=== PATIENT | female | born 1980 | race Caucasian/White ===

== ENCOUNTER 2018-08-30 06:01 | Observation (INO) | payer BC ==
--- NOTE | 2018-08-29 20:58 | PDGENHP ---
History and Physical History and Physical: Assessment and Plan: 1. Rectocele Hernando has stage III pelvic organ prolapse predominantly involving her posterior compartment with lesser her anterior and apical. Additionally, she has very heavy menses and a known dermoid cyst. We reviewed all conservative and surgical options. At the end of our discussion she is interested in surgical treatment. This will be a robotic assisted total laparoscopic hysterectomy, bilateral salpingectomy, ovarian cystectomy or oophorectomy, uterosacral ligament colpopexy, rectocele repair, and cystoscopy. 2. Cystocele, midline 3. Menorrhagia with regular cycle Subjective: Patient ID: Hernando Cm is a 38 y.o. female who presents to [facility] for prolapse. HANNAH Dawkins is a 37-year-old para 2 woman using vasectomy for contraception. She was kindly referred by Kristy Silver for prolapse. She has felt a bulge and must splint her posterior vaginal wall when constipated. This is been present for several years and is slowly worsening. She thinks she may have some incomplete emptying of her bladder. She also must wait to fully empty. She does not leak with any stress. She saw Kristy who diagnosed her with prolapse. Additionally her menses are very heavy. She will bleed a total of 4-6 days. Of these, 3-4 are very heavy when she will have to use 2 tampons at a time and change them every 2 hours. She also has significant cramping during her menses. Finally, she states she has been followed for a 1 cm ovarian dermoid. She is not sure which side it is located on. 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 Her history is significant for an umbilical hernia repair as well as a history of C. difficile colitis and obesity. PastMedicalHistory Past Medical History: Diagnosis Date Allergy to pollen Depression Gastrointestinal disorder GERD (gastroesophageal reflux disease) History of Clostridium difficile infection PastSurgicalHistory Past Surgical History: Procedure Laterality Date APPENDECTOMY DILATION AND CURETTAGE OF UTERUS TONSILLECTOMY UMBILICAL HERNIA REPAIR WISDOM TOOTH EXTRACTION CURRENT MEDICATIONS: Current Outpatient Medications Medication Sig calcium carb/magnesium oxid/D3 (CALCIUM MAGNESIUM + D PO) cetirizine (ZYRTEC) 10 mg tablet Take 10 mg by mouth daily. diphenhydramine HCl (BENADRYL PO) fluticasone propionate (FLONASE NA) Lactobacillus acidophilus (PROBIOTIC PO) pantoprazole (PROTONIX) 40 mg EC tablet TK 1 T PO QD sertraline (ZOLOFT) 100 mg tablet TK 1 T PO ONCE D WITH 50MG T sertraline (ZOLOFT) 50 mg tablet simethicone (GAS-X PO) VITAMIN B COMPLEX PO No current facility-administered medications for this visit. ALLERGIES: Codeine; Egg; and Erythromycin I have reviewed, verified and agree with the past medical, surgical, , family, social and ROS history as documented by the RN today. Objective: Vital Signs: Visit Vitals BP 124/72 Pulse 68 Temp 36.5 C (97.7 F) (Temporal) Resp 16 Ht 1.626 m (5' 4") Wt (!) 127.3 kg (280 lb 9.6 oz) SpO2 93% BMI 48.16 kg/m Physical Exam Gen: This is an alert, well developed woman in no distress. Neuro: She moves all extremities. Psych: She is appropriate, oriented, with normal affect. Neck: No thyroid enlargement, adenopathy, or tenderness. Lungs: Clear to ascultation, no wheezes or rales. Heart: Regular rate and rhythm without obvious murmurs. Abdomen: Soft, non-tender, without guarding, rebound, or masses. Extremities: No edema or cyanosis. Pelvic: Normal external genitalia. Non-gaping introitus, vagina without discharge, adequately estrogenized. Cervix without lesions or discharge. Uterus normal sized, mobile, non-tender. Adnexa non-tender without enlargement. She has a second-degree cystocele, second-degree uterine prolapse, and 3rd degree ballooning rectocele. DATA: I have reviewed the pertinent medical records. TIME/COMMUNICATION: I personally spent a total of 50 minutes. Of that 40 minutes was counseling/ coordination of patient's care. See my note above for details. Ashok Willson MD Board Certified Female Pelvic Medicine and Reconstructive Surgery Director of Minimally Invasive Gynecologic Surgery, [facility] Surgeon in Minimally Invasive Gynecologic Surgery [facility] Surgeon in Robotic Surgery
[2018-08-30] MEDS ORDERED: ceFAZolin 2 GM/DEXTROSE 100 ML IV ONE (06:06)
[2018-08-30] MEDS ORDERED: PHENAZOPYRIDINE HCL 200 MG TAB PO ONE (06:06)
[2018-08-30] MEDS ORDERED: ACETAMINOPHEN 500 MG TAB PO ONE (06:06)
[2018-08-30] MEDS ORDERED: GABAPENTIN 300 MG CAP PO ONE (06:06)
[2018-08-30] MEDS ORDERED: LIDOCAINE 1% 2 ML INJ ID PRN (06:10)
[2018-08-30] MEDS ORDERED: LR 1,000 ML IV ONE (06:10)
--- NOTE | 2018-08-30 07:07 | PDANEPAE ---
ANE Past Medical History - Cardiovascular History Hx Hypertension: No Hx Arrhythmias: No Hx Chest Pain: No Hx Coronary Artery / Peripheral Vascular Disease: No Hx CHF / Valvular Disease: No Hx Palpitations: No - Pulmonary History Hx COPD: No Hx Asthma/Reactive Airway Disease: No Hx Recent Upper Respiratory Infection: No Hx Oxygen in Use at Home: No Hx Sleep Apnea: Yes Sleep Apnea Screening Result - Last Documented: Positive Pulmonary History Comment: rashida positive- uses cpap- instructed pt to bring to hospital. pna x 14, doctors have told her it is was most likely d/t aspiration and rashida issues - Neurologic History Hx Cerebrovascular Accident: No Hx Seizures: No Hx Dementia: No - Endocrine History Hx Diabetes: No Endocrine History Comment: hx of hypothyroidism - Renal History Hx Renal Disorders: Yes Renal History Comment: hx of uti - Liver History Hx Hepatic Disorders: No - Neurological & Psychiatric Hx Hx Neurological and Psychiatric Disorders: Yes Neurological / Psychiatric History Comment: hx of depression - Cancer History Hx Cancer: No - Congenital Disorder History Hx Congenital Disorders: No - GI History Hx Gastrointestinal Disorders: Yes Gastrointestinal History Comment: GERD - Other Health History Other Health History: wears glasses occassionally. acne - Chronic Pain History Chronic Pain: Yes (low back) - Surgical History Prior Surgeries: emergency appy 2013 in [place]. tonsillectomy 1993. d&c for late miscarriage 2007. wisdom teeth extracted 1995 ANE Review of Systems Review of Systems: - Exercise capacity METS (RN): 4 METS ANE Patient History - Allergies Allergies/Adverse Reactions: codeine Allergy (Verified 08/21/18 10:29) Vomiting coffee (Coffea arabica) Allergy (Verified 08/21/18 15:03) Anaphylaxis egg [eggs] Allergy (Verified 08/21/18 15:03) hives if ingested a few times a week, flu shot causes anaphy - Home Medications Home Medications: Albuterol [Proventil Inhaler HFA (*)] 1 - 2 puffs IH DAILY PRN 08/21/18 [Last Taken 03/03/18] Calcium Carb W/Vit D [Calcium Carb W/Vit D 500/200 (*)] 500 mg PO HS 08/21/18 [ Last Taken 08/29/18] Cetirizine [ZyrTEC 10 mg (*)] 10 mg PO DAILY 08/21/18 [Last Taken 08/29/18] Ferrous Sulfate [Ferrous Sulf 325 MG (*)] 325 mg PO DAILY 08/21/18 [Last Taken 08/29/18] Fluticasone Nasal [Flonase Nasal [place] (RX)] 1 sprays NASAL BID 08/21/18 [Last Taken 08/28/18] Herbals/Supplements -Info Only 1 ea PO DAILY 08/21/18 [Last Taken 08/28/18] Ibuprofen [Motrin (*)] 200 mg PO HS PRN 08/21/18 [Last Taken 08/23/18] Pantoprazole Sodium [Protonix 40mg (*)] 40 mg PO DAILY 08/21/18 [Last Taken 05/10 05:00] Sertraline HCl [Zoloft 100mg (*)] 150 mg PO DAILY 08/21/18 [Last Taken 08/30/18 05:00] Simethicone [Gas Relief] 80 mg PO HS 08/21/18 [Last Taken 08/28/18] Vitamin B Complex [Vitamin B Complex (OTC)] 1 each PO DAILY 08/21/18 [Last Taken 08/29/18] diphenhydrAMINE [Benadryl 50 MG (*)] 100 mg PO HS 08/21/18 [Last Taken Unknown] - NPO status NPO Since - Liquids (Date): 08/30/18 NPO Since - Liquids (Time): 05:00 NPO Since - Solids (Date): 08/29/18 NPO Since - Solids (Time): 20:00 - Smoking Hx Smoking Status: Never smoked - Family Anes Hx Family Hx Anesthesia Complications: dad- stops breathing and gets sick as well ANE Labs/Vital Signs - Vital Signs Blood Pressure: 88/66 Heart Rate: 67 Respiratory Rate: 14 O2 Sat (%): 95 Height: 162.56 cm Weight: 127.006 kg ANE Physical Exam - Airway Mallampati Score: Class 1 - ASA Status ASA Status: II ANE Anesthesia Plan Anesthesia Plan: general endotracheal anesthesia
[2018-08-30] MEDS ORDERED: MIDAZOLAM 2 MG/2 ML VIAL ONE (07:10)
[2018-08-30] MEDS ORDERED: ROCURONIUM 50 MG/5 ML VIAL ONE ×2 (07:12→09:09)
[2018-08-30] MEDS ORDERED: fentaNYL 100 MCG/2 ML INJ ONE ×3 (07:12→09:56)
[2018-08-30] MEDS ORDERED: PROPOFOL 200 MG/20 ML VIAL ONE (07:12)
[2018-08-30] MEDS ORDERED: DEXAMETHASONE 4 MG/ML VIAL ONE ×2 (07:12→07:13)
[2018-08-30] MEDS ORDERED: METOCLOPRAMIDE 10 MG/2 ML VIAL ONE (07:13)
[2018-08-30] MEDS ORDERED: ONDANSETRON 4 MG/2 ML VIAL ONE (07:13)
--- NOTE | 2018-08-30 07:13 | PDHPUP ---
History & Physical Update H&P update statement: This history and physical update is based on an assessment of the patient which was completed after admission or registration (within 24 hours), but prior to the surgery/procedure. H&P update: H&P reviewed & patient examined, no change in patient's condition since H&P completed
[2018-08-30] MEDS ORDERED: SCOPOLAMINE HYDROBROMIDE 1 MG/3 DAYS PATCH TD SCH (07:15)
[2018-08-30] MEDS ORDERED: BUPIVACAINE/EPI 0.5% 30 ML SDV ONE (07:25)
[2018-08-30] MEDS ORDERED: SUGAMMADEX SODIUM 200 MG/2 ML VIAL IVP ONE (09:25)
[2018-08-30] MEDS ORDERED: ALBUTEROL 60 PUFFS/8 GM MDI IH PRN (09:36)
--- NOTE | 2018-08-30 09:36 | POSTOPPROG ---
Post Op Note Date of Operation: 08/30/18 Surgeon: Ashok Willson [employer] Supervisor: Maggie Andrade Anesthesiologist: Linh Anesthesia: GET(General Endotracheal) Pre-op Diagnosis: Menorrhagia, rectocele Post-op Diagnosis: Same plus endometriosis Procedure: Robotic hyst, LO, Endo, US lig colpopexy, rectocele, cysto Findings: ureters function at end of case Inf/Abcess present in the surg proc area at time of surgery?: No EBL: Minimal Complications: None
[2018-08-30] MEDS ORDERED: PROMETHAZINE HCL 25 MG/ML INJ IVP PRN ×2 (09:38→09:44)
[2018-08-30] MEDS ORDERED: ONDANSETRON DISINTEGRATING 4 MG TAB PO PRN (09:38)
[2018-08-30] MEDS ORDERED: ONDANSETRON 4 MG/2 ML VIAL IVP PRN ×2 (09:38→09:44)
[2018-08-30] MEDS ORDERED: LR 500 ML IV PRN (09:44)
[2018-08-30] MEDS ORDERED: ALBUTEROL 3 ML DEYVIAL IH PRN (09:44)
[2018-08-30] MEDS ORDERED: NALOXONE HCL 0.4 MG/ML INJ IVP PRN (09:44)
--- NOTE | 2018-08-30 09:46 | POSTANESTH ---
Post Anesthetic Evaluation Cardiovascular Status: Normal, Stable Respiratory Status: Similar to Pre-op Cond. Level of Consciousness/Mental Status: Can Participate in Eval Pain Control: Adequate, Prn Tx Ordered Nausea/Vomiting Control: Adequate, Prn Tx Ordered Complications Possibly Related to Anesthesia: None Noted
[2018-08-30] MEDS: HYDROmorphONE/DILAUDID 2 MG/ML INJ IVP PRN ×5 (09:47→10:44)
[2018-08-30] MEDS ORDERED: HYDROmorphONE/DILAUDID 2 MG/ML INJ ONE (09:49)
[2018-08-30] MEDS: fentaNYL 100 MCG/2 ML INJ IVP PRN ×3 (09:58→10:33)
[2018-08-30] MEDS ORDERED: LR 1,000 ML IV SCH (10:00)
--- NOTE | 2018-08-30 10:20 | GOP ---
DATE OF OPERATION: 08/30/2018 SURGEON: Ashok Willson MD VICE CHAIR: BERNY Urban. ANESTHESIA: General. PREOPERATIVE DIAGNOSIS: 1. Menorrhagia. 2. Rectocele. 3. Uterine prolapse. 4. Cyclic pelvic pain. POSTOPERATIVE DIAGNOSIS: 1. Menorrhagia. 2. Rectocele. 3. Uterine prolapse. 4. Cyclic pelvic pain. 5. Endometriosis. PROCEDURE PERFORMED: 1. Robotic-assisted total laparoscopic hysterectomy, bilateral salpingectomy, left oophorectomy. 2. Excision of right ovarian endometrioma. 3. Excision of endometriosis. 4. Left ureterolysis. 5. Rectocele repair. 6. Right ovarian pexy. 7. Cystoscopy. FINDINGS: SPECIMENS: 1. Uterus, bilateral tubes and left ovary. 1. Right ovarian cystectomy. 2. ESTIMATED BLOOD LOSS: Less than 20 mL. DESCRIPTION OF PROCEDURE: The patient was taken to the operating room. She was identified. General anesthesia was administered and found to be adequate. She was placed in the lithotomy position and prepared and draped in normal sterile fashion. A [employer] uterine manipulator was placed into the endometrial cavity and sutured to the cervix. A Doe catheter was then placed. A 1 cm infraumbilical incision was made with a scalpel. The Veress needle with CO2 gas flowing was advanced into the peritoneal cavity. The abdomen was then insufflated with carbon dioxide gas. The 12 mm trocar followed by the laparoscope were then inserted. The upper abdomen was unremarkable. Two lateral ports were placed on the right and 2 on the left under direct visualization. She then was placed in mild Trendelenburg given her body habitus , The [employer] robot was then docked on the left side. The instruments were then brought into the abdominal cavity under direct visualization. The patient was noted to have enlarged ovaries from ovarian cysts which were endometriomas. The ovaries were adhered to the posterior aspect of the uterus from endometriosis which was in the posterior cul-de-sac as well. A decision was made to remove her left ovary but leave her right after performing a cystectomy. The left fallopian tube initially was along the mesosalpinx. The ovarian ligament followed by the round ligament were then cauterized and transected. The anterior leaf of the broad ligament was then incised over the left uterine vessels and across the cervix. The bladder was gently dissected off the cervix and upper vagina. The left uterine vasculature was then cauterized and transected. The rectum was adherent to the posterior aspect of the cervix. Gentle sharp and blunt dissection were used to separate it. The right utero-ovarian ligament, followed by the round ligament were likewise cauterized and transected. The bladder was further dissected off on the right and the right uterine vasculature was then cauterized and transected. A circumferential colpotomy incision was then made and the uterus and tubes were removed through the vagina. The left ovary was adherent to the pelvic sidewall. A left ureterolysis was required. The peritoneum at the pelvic brim was incised and the ureter was gently dissected free and lateralized off the overlying peritoneum, endometriosis and ovary. Once was accomplished I was able to skeletonize the infundibulopelvic vessels on the left, which were then cauterized and transected. The left ovary was then placed in the vagina for removal. A right ovarian cystectomy was performed to remove the endometrium on the right. A right ovarian pexy was performed by attaching the ovary to the distal lateral round ligament near the internal inguinal ring. The endometriosis in the pelvis was excised. The vaginal cuff was then closed with a running suture of 0 V-Loc 180. A bilateral uterosacral ligament colpopexy was performed by attaching the lateral aspects of the vaginal cuff to the ipsilateral uterosacral ligaments. The pelvis was then irrigated with sterile saline, and hemostasis was present. The robot was then undocked. The fascia was closed with 0 Vicryl, skin with 4-0 Monocryl. Attention was then turned to the rectocele repair. A transverse incision was made along the perineal body and the posterior vaginal epithelium undermined sagittally. The epithelium was gently dissected off the underlying rectovaginal connective tissue. The connective tissue was plicated in midline with interrupted sutures of 0 Vicryl. The bulbous spongiosis and transverse perineal muscles were plicated in midline. The excess epithelium was then trimmed and closed with a running 2-0 Vicryl suture. Cystoscopy was then performed. Both ureters had vigorous jets of urine. There was no evidence of bladder nor urethral injury seen. No sutures were seen within the bladder. No obvious pathology was seen. Vaginal packing was then placed. Anesthesia was reversed. The patient taken to PACU awake, in stable condition. COMPLICATIONS: None. DISPOSITION: Patient stable to PACU. /[id number]/MODL MTDD
[2018-08-30] MEDS: KETOROLAC 30 MG/1 ML SDV IVP SCH ×3 (11:20→22:59)
[2018-08-30] MEDS: SIMETHICONE 80 MG TAB CHEW PO SCH ×3 (14:22→19:58)
[2018-08-30] MEDS: GABAPENTIN 300 MG CAP PO SCH ×2 (17:12→22:38)
[2018-08-30] MEDS: DOCUSATE SODIUM 100 MG CAP PO SCH (19:55)
[2018-08-30] MEDS: HYDROCODONE/APAP 5/325 TAB PO PRN (19:55)
[2018-08-30] MEDS: FLUTICASONE NASAL 120 SPRAYS/16 GM MDI EACHNARE SCH (20:00)
[2018-08-31] MEDS: HYDROCODONE/APAP 5/325 TAB PO PRN ×3 (03:27→13:28)
[2018-08-31] MEDS: KETOROLAC 30 MG/1 ML SDV IVP SCH (05:10)
[2018-08-31 05:52] LABS: PLATELET COUNT 240 10^3/uL (150-400)
[2018-08-31 07:18] VITALS: BP 106/70
[2018-08-31] MEDS: SIMETHICONE 80 MG TAB CHEW PO SCH ×2 (07:32→14:07)
[2018-08-31] MEDS: DOCUSATE SODIUM 100 MG CAP PO SCH (07:32)
[2018-08-31] MEDS: GABAPENTIN 300 MG CAP PO SCH (07:33)
[2018-08-31] MEDS: FLUTICASONE NASAL 120 SPRAYS/16 GM MDI EACHNARE SCH (07:33)
--- NOTE | 2018-08-31 08:09 | GDS ---
DISCHARGE DIAGNOSES: 1. Menorrhagia. 2. Dysmenorrhea. 3. Endometriosis. 4. Second-degree uterine prolapse. 5. Symptomatic rectocele. PROCEDURES: 1. Robotic-assisted total laparoscopic hysterectomy, bilateral salpingectomy, left oophorectomy. 2. Excision of right ovarian endometrioma. 3. Ureterolysis. 4. Excision of endometriosis. 5. Uterosacral ligament colpopexy. 6. Rectocele repair. 7. Cystoscopy. HISTORY: The patient is a 38-year-old female with heavy and painful menses, as well as a symptomatic rectocele. She was taken to the operating room on 08/30/2018, where she underwent the above-mention ed procedures. She was found to have fairly significant endometriosis with both adnexa adherent to t he posterior aspect of the uterus, as well as the rectum adherent to the cervix. She had bilateral e ndometriomas. Her right ovary was left in place, but attached to the right round ligament. HOSPITAL COURSE: Her postoperative course was uneventful. The morning after surgery, she was ambula ting, voiding, and tolerating a general diet. She was discharged home on postoperative day #1 in goo d condition. Medications, included Shelley and ibuprofen for pain. She is to follow up in the office 2 weeks after discharge. /[id number]/MODL
[2018-08-31] MEDS ORDERED: PANTOPRAZOLE SODIUM 40 MG TAB PO SCH (09:00)
[2018-08-31] MEDS ORDERED: SERTRALINE HCL 100 MG TAB PO SCH (09:00)
[2018-09-02] MEDS ORDERED: PATCH REMOVAL 1 EA PATCH TD SCH (07:03)
== END 2018-08-31 14:26 | disposition home or self-care (01) ==
LOC: F3E 06:01
PROVIDERS: ADMIT Obstetrics & Gynecology; ATTEND Obstetrics & Gynecology
DX: N92.0 Excessive and frequent menstruation with regular cycle (principal); N94.6 Dysmenorrhea, unspecified; N80.9 Endometriosis, unspecified; N81.2 Incomplete uterovaginal prolapse
CPT/HCPCS: 45560; 58571; G0378; J0690; J1100; J1170; J1885; J2250; J2270; J2405; J2704; J2765; J3010